=== PATIENT | male | born 1990 | race Two or more races ===

== ENCOUNTER 2025-02-15 07:15 | Emergency (ER) | payer SELFPAY ==
[~2025-02-15] VITALS: Ht 167.6 cm; Wt 119.9 kg
[2025-02-15 07:17] VITALS: BP 122/93; PULSE 75; RESP 18; TEMP 98.1; O2SAT 95
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
== END 2025-02-15 08:33 | disposition home or self-care (01) ==
LOC: ER 07:15
DX: Z04.1 Encounter for examination and observation following transport accident (principal); V89.2XXA Person injured in unspecified motor-vehicle accident, traffic, initial encounter; Y92.410 Unspecified street and highway as the place of occurrence of the external cause; Y93.89 Activity, other specified; Y99.8 Other external cause status